=== PATIENT | female | born 1970 | race Caucasian/White ===

== ENCOUNTER 2017-12-21 21:44 | Emergency (ER) | payer OTHER ==
[~2017-12-21] VITALS: Ht 157.5 cm; Wt 61.2 kg
[~2017-12-21 21:44] MED LIST: BIAXIN 500 MG500 M1 PO; FLEXERIL; FLEXERIL PO; NORCO 5-325 TA1 EACH PO; PEPCID40 MG PO; PREDNISONE 10 M10 MG PO; PREDNISONE 20 M20 M1 PO; VISTARIL 25 MG25 M1 PO; ZYRTEC 10 MG TA10 MG PO
[2017-12-21] MEDS ORDERED: BACTRIM DS TAB1 EACH PO (22:26)
[2017-12-21] MEDS ORDERED: KEFLEX500 M1 PO (22:26)
[2017-12-21] MEDS ORDERED: NORCO 5-325 TA1 EACH PO (22:26)
[2017-12-21 22:40] VITALS: BP 108/70
== END 2017-12-21 22:41 | disposition home or self-care (01) ==
LOC: M.ERS 21:44
DX: L02.416 Cutaneous abscess of left lower limb (principal); F17.210 Nicotine dependence, cigarettes, uncomplicated

== ENCOUNTER 2017-12-31 00:44 | Emergency (ER) | payer OTHER ==
[~2017-12-31] VITALS: Ht 157.5 cm; Wt 63.5 kg
[~2017-12-31 00:44] MED LIST changes: +BACTRIM DS TAB1 EACH PO; +KEFLEX500 M1 PO
[2017-12-31 01:25] VITALS: BP 115/64
== END 2017-12-31 01:26 | disposition home or self-care (01) ==
LOC: M.ERS 00:44
DX: Z71.1 Person with feared health complaint in whom no diagnosis is made (principal); F17.210 Nicotine dependence, cigarettes, uncomplicated